=== PATIENT | male | born 2000 | race African-American/Black ===

== ENCOUNTER 2021-05-04 09:33 | Emergency (ER) | payer OTHER ==
[~2021-05-04] VITALS: Ht 167.6 cm; Wt 86.3 kg
[2021-05-04 10:16] VITALS: BP 151/90
[2021-05-04] MEDS ORDERED: IBUPROFEN600 MG PO (10:20)
[2021-05-04] MEDS ORDERED: VOLTAREN1%GEL TOP (10:20)
== END 2021-05-04 11:05 | disposition home or self-care (01) | DRG 556 ==
LOC: ED 09:33
DX: M25.511 Pain in right shoulder (principal); X50.3XXA Overexertion from repetitive movements, initial encounter; Y93.B9 Activity, other involving muscle strengthening exercises; Y92.39 Other specified sports and athletic area as the place of occurrence of the external cause